=== PATIENT | male | born 1935 | race Caucasian/White ===

== ENCOUNTER 2019-03-21 15:24 | Emergency (ER) | payer MEDICARE ==
[~2019-03-21] VITALS: Ht 177.8 cm; Wt 75.0 kg
[~2019-03-21 15:24] MED LIST: LIDOcaine 1% W/epiNEPHrine 1:100,000 20ml vial ONE
[2019-03-21 15:31] VITALS: BP 146/81
[2019-03-21] MEDS ORDERED: CEPH-572 PO (18:08)
== END 2019-03-21 18:19 | disposition home or self-care (01) ==
LOC: ER 15:25
DX: S61.411A Laceration without foreign body of right hand, initial encounter (principal); I10 Essential (primary) hypertension; Z90.49 Acquired absence of other specified parts of digestive tract; W45.8XXA Other foreign body or object entering through skin, initial encounter; Y93.89 Activity, other specified; Y92.89 Other specified places as the place of occurrence of the external cause; Y99.9 Unspecified external cause status
CPT/HCPCS: 12046; 73130; 99284

== ENCOUNTER 2019-03-24 10:03 | Emergency (ER) | payer MEDICARE ==
[~2019-03-24] VITALS: Ht 203.2 cm; Wt 77.3 kg
[~2019-03-24 10:03] MED LIST changes: +CEPH-572 PO; -LIDOcaine 1% W/epiNEPHrine 1:100,000 20ml vial ONE
[2019-03-24 10:08] VITALS: BP 103/73
== END 2019-03-24 11:05 | disposition home or self-care (01) ==
LOC: ER 10:03
DX: S61.411D Laceration without foreign body of right hand, subsequent encounter (principal); R60.0 Localized edema; M79.641 Pain in right hand; I10 Essential (primary) hypertension; Z48.01 Encounter for change or removal of surgical wound dressing; Z79.2 Long term (current) use of antibiotics; Z90.49 Acquired absence of other specified parts of digestive tract; W45.8XXD Other foreign body or object entering through skin, subsequent encounter
CPT/HCPCS: 99282; 99283